=== PATIENT | female | born 1950 | race Caucasian/White ===

== ENCOUNTER 2018-04-13 13:27 | Observation (INO) ==
--- NOTE | 2018-04-12 12:22 | MH ---
cc: Alfonso Caballero MD DATE OF ADMISSION: 04/13/2018 CHIEF COMPLAINT: Pelvic pain with right adnexal mass. HISTORY OF PRESENT ILLNESS: The patient is a 68-year-old, white female, para 4-0-0-4 who has had some intermittent pelvic pain and diarrhea, right side more than left, and was thought to have diverticular disease. Those studies were negative. That improved. Her crampy discomfort continued. Her primary doctor obtained a CT scan of the abdomen and pelvis on 02/05/2018 that showed a prominent uterus and a right ovarian mass that was cystic at 7.8 cm. She was referred to me on 03/19/2018. Examination confirmed the right adnexal mass. An ultrasound was obtained on 03/31/2018 that showed a uterus that measured 4.5 cm. Endometrium was only 3-4 mm. There was a single mass in the right adnexa, simple cyst, unilocular, 7.8 cm. The right ovary could not be seen separately. The left ovary could not be seen. There was no free fluid. She is now admitted for surgical evaluation. PAST MEDICAL HISTORY: Previous surgery to the knee after a fracture and had 3 repair procedures, left side. MEDICATIONS: None. ALLERGIES: NONE. TRANSFUSIONS: None. OBSTETRIC HISTORY: Four vaginal deliveries. SOCIAL HISTORY: She is a retired realtor. for 47 years. Alcohol: Occasional. Cigarettes: 1/2 pack a day x 50 years. Drugs: None. FAMILY HISTORY: Noncontributory. REVIEW OF SYSTEMS: Negative. PHYSICAL EXAMINATION: GENERAL: This is a well-nourished, well-developed white female. VITAL SIGNS: Stable. Weight 117 pounds. Height 5 feet 7 inches. HEENT: Normal. CHEST: Clear. HEART: Regular rate. BREASTS: Symmetrical. ABDOMEN: Benign. PELVIC: Vagina is normal with atrophy. Cervix normal. Uterus is normal size, shape. Right adnexa cystic. ADDITIONAL LABORATORY DATA: CA-125 from 03/14/2018 was normal, ASSESSMENT: As above. PLAN: She is having a preoperative bowel prep. The plan is for laparoscopy with probable LASH/BSO, possible VERONA/BSO. While in the office, the risks, benefits and complications had been explained and accepted. The patient would like to proceed. She is aware of a small chance of malignancy that could require additional treatment. MD Brendan Delgado , 11:59 AM , 12:05 PM
[2018-04-13] MEDS ORDERED: Chlorhexidine Gluconate 2% 1 Pack (2 Cloths) TOPICAL ONE (14:30)
[2018-04-13] MEDS ORDERED: Sodium Chlor 0.9% Inj 500 ML IV.CONT ONE (14:30)
[2018-04-13] MEDS ORDERED: Metoprolol Tartrate 25 MG Tablet PO ONE (14:30)
[2018-04-13] MEDS ORDERED: ceFAZolin 1 GM Premix Inj 1 GM/50 ML IV.SIG ONE (15:00)
[2018-04-13] MEDS ORDERED: Lidocaine PF 1% Inj 5 ML Syringe OTHER ONE (15:36)
[2018-04-13] MEDS ORDERED: Succinylcholine Inj 100 MG/5 ML Syringe IV.PUSH ONE (15:36)
[2018-04-13] MEDS ORDERED: Ketorolac Inj 30 MG/ML (IVP) Vial IV.PUSH ONE (15:36)
[2018-04-13] MEDS ORDERED: fentaNYL Citrate Inj 100 MCG/2 ML Ampul ONE (16:57)
[2018-04-13] MEDS ORDERED: Bupivacaine PF 0.5% Inj 30 ML Vial ONE (17:04)
[2018-04-13] MEDS ORDERED: HYDROmorphone PF Inj 1 MG/ML Ampul IV.PUSH PRN (17:15)
[2018-04-13] MEDS ORDERED: *Meperidine Inj 25 MG/ML Vial PERIprocedural Use ONLY ONE (17:49)
[2018-04-13] MEDS: Ketorolac Inj 30 MG/ML (IVP) Vial IV.PUSH SCH ×2 (18:05→23:53)
[2018-04-13] MEDS ORDERED: Morphine Inj 4 MG/ML Vial IV.PUSH ONE (18:06)
[2018-04-13 18:16] LABS: Hematocrit 40.6 % (35.0-46.0); Hemoglobin 14.1 gm/dL (11.6-15.3); Mean Corpuscular HGB Conc 34.8 % (32.0-36.0); Mean Corpuscular Hemoglobin 34.8 pg (27.0-34.0); Mean Corpuscular Volume 100.1 fL (80.0-100.0); Platelet Count 206 th/mm3 (150-450); Red Blood Count 4.05 mil/mm3 (4.00-5.30); Red Cell Distribution Width 12.8 % (11.6-17.2); White Blood Count 6.1 th/mm3 (4.0-11.0)
[2018-04-13] MEDS ORDERED: *morphine SULFATE 4 MG/ML PERIprocedure ONLY ONE (18:26)
--- NOTE | 2018-04-13 18:38 | MP ---
cc: Alfonso Caballero MD DATE OF OPERATION: 04/13/2018 PREOPERATIVE DIAGNOSES: Right adnexal mass with pelvic pain. POSTOPERATIVE DIAGNOSES: Right adnexal mass with pelvic pain with right ovarian serous cystadenoma. PROCEDURE PERFORMED: Laparoscopy, followed by a LASH/BSO. ANESTHESIA: General ET. SURGEON: Alfonso Caballero MD [place]SHAL: MARIAH Pickens ESTIMATED BLOOD LOSS: About less than 100 mL. FLUIDS: 1.6 liters crystalloid. OBJECTIVE FINDINGS: Following induction of adequate general endotracheal anesthesia, the patient was prepped and draped supine on the operating table in dorsal lithotomy position in a sterile fashion, with the bladder being drained via Jain catheter. The abdomen was opened through a 3 cm curving infraumbilical incision using a knife to cut down through the skin to the fascia. The fascia opened transversely, stripped from the muscles, rectus muscle split in the midline and the peritoneum opened sharply without incident. The mini GelPort was placed. Laparoscope was inserted. A 5 port placed in left lower quadrant and also a port in the right lower quadrant. Pelvic contents were clear, as was the abdominal cavity. The left tube and ovary were normal. Uterus showed small fibroids. The right ovary was cystic, about 7 cm, mobile, appeared benign. Peritoneal washings were collected for permanent study. Harmonic scalpel was now used to take the right ovarian vessels, right mesosalpinx, right round ligament and right uteroovarian pedicle. This was placed in a pouch, pouch exteriorized, and a needle was used to decompress the cyst with the fluid being sent for cytology and the intact ovary and right tube sent for frozen section. Harmonic scalpel was now used to take the left ovarian pedicle, left round ligament, left broad ligament, left side of bladder flap and the left uterine vessels. On the right side, the Harmonic scalpel was used to take the remaining broad ligament, bladder flap and uterine vessels. Harmonic scalpel was now used to amputate the fundus from the cervix. A pouch was inserted and with the pouch, extracted the fundus and left tube and ovary intact. Irrigation was performed. No bleeding was evident with low pressure test. The ureter showed good bilateral peristalsis. The operative sites were coated with Evicel. Frozen section returned benign. The scope was removed. GelPort removed. Peritoneum closed with a running 2-0 Vicryl, the fascia with a running locking stitch with 0 Vicryl corner to midline and tied, subcutaneous with running 3-0 Vicryl, and the skin with a running subcuticular 3-0 Monocryl. The scope was now reinserted through the lower port sites and used to inspect the GelPort site, which had good closure with no entrapment of tissue. The pelvic was inspected and there was no bleeding. The small ports were now removed after allowing the gas to escape and the wounds were closed with 3-0 Monocryl. Dermabond applied. Counts were correct. Anesthesia was now do a TAP block and the patient will go to the recovery room. MD SAKINA Delgado/celso , 05:23 PM , 05:31 PM
[2018-04-13] MEDS ORDERED: Zolpidem Tartrate 5 MG Tablet PO PRN (21:00)
[2018-04-13] MEDS: Docusate Sodium 100 MG Capsule PO SCH (23:12)
[2018-04-14] MEDS: Ketorolac Inj 30 MG/ML (IVP) Vial IV.PUSH SCH ×2 (05:46→14:23)
[2018-04-14 05:53] LABS: Baso % (Auto) 0.1 % (0.0-2.0); Hematocrit 42.3 % (35.0-46.0); Hemoglobin 14.4 gm/dL (11.6-15.3); Lymph # (Auto) 0.6 th/mm3 (1.0-4.8); Lymph % (Auto) 7.7 % (9.0-44.0); Mean Corpuscular HGB Conc 34.1 % (32.0-36.0); Mean Corpuscular Hemoglobin 34.5 pg (27.0-34.0); Mono # (Auto) 0.3 th/mm3 (0.0-0.9); Mono % (Auto) 4.6 % (0.0-8.0); Neut # (Auto) 6.3 th/mm3 (1.8-7.7); Neut % (Auto) 87.6 % (16.0-70.0); Platelet Count 194 th/mm3 (150-450); Red Blood Count 4.19 mil/mm3 (4.00-5.30); Red Cell Distribution Width 12.6 % (11.6-17.2); White Blood Count 7.2 th/mm3 (4.0-11.0)
[2018-04-14 06:17] LABS: Anion Gap 10 meq/L (5-15); Blood Urea Nitrogen 4 mg/dL (7-18); Carbon Dioxide 26.3 meq/L (21.0-32.0); Chloride 99 meq/L (98-107); Glomerular Filtration Rate Greater Than 89 mL/min (>89); Glucose,Random 117 mg/dL (74-106); Potassium 3.9 meq/L (3.5-5.1); Sodium 135 meq/L (136-145)
[2018-04-14] MEDS ORDERED: Aluminum/Magnesium/Simethacone Susp 30 ML UDC PO ONE (09:15)
[2018-04-14] MEDS: Docusate Sodium 100 MG Capsule PO SCH (09:18)
== END 2018-04-14 16:20 | disposition home or self-care (01) ==
LOC: HSDI 13:27 → HOR 13:27 → H1EA 18:35
PROVIDERS: ADMIT Obstetrics & Gynecology; ATTEND Obstetrics & Gynecology
PROC: LAPLASH (ICD-10-PCS; 2018-04-13 15:36)